=== PATIENT | female | born 1960 | race Caucasian/White ===

== ENCOUNTER 2019-10-21 08:35 | Outpatient (CLI) | payer BC ==
--- NOTE | 2019-10-21 09:40 | MMO ---
Bilateral MAMMO Bilat Diag [facility]. CLINICAL HISTORY: Patient is 59 years old and is seen for diagnostic exam and lump or thickening in the left breast. The patient has no family history of breast cancer. The patient has no personal history of cancer. VIEWS: The views performed were: bilateral craniocaudal with tomosynthesis; bilateral mediolateral oblique with tomosynthesis; bilateral mediolateral with tomosynthesis; and left exaggerated craniocaudal with tomosynthesis. FILMS COMPARED: The present examination has been compared to prior imaging studies performed at [facility] on 10/11/1993, 12/26/2010, 09/15/2013 and 10/21/2019. This study has been interpreted with the assistance of computer-aided detection. MAMMOGRAM FINDINGS: The breasts are heterogeneously dense, which could obscure a lesion on mammography. There is a new spiculated mass with tiny calcs in the left upper outer breast with a small adjacent nodule. New prominent left axillary lymph nodes are noted. Please see US report. In the right breast, there are no suspicious masses, calcifications or areas of architectural distortion. IMPRESSION: FINDING IN THE LEFT BREAST IS HIGHLY SUGGESTIVE OF MALIGNANCY. AN ULTRASOUND-GUIDED BREAST BIOPSY IS RECOMMENDED. THE RESULTS OF THIS EXAM WERE SENT TO THE PATIENT. ACR BI-RADS Category 5 - Highly suggestive of malignancy - appropriate action should be taken D/w pt in person @ 9:[address] Concepcion over the phone @ 9:35 am MAMMOGRAPHY NOTE: 1. A negative mammogram report should not delay a biopsy if a dominant of clinically suspicious mass is present. 2. Approximately 10% to 15% of breast cancers are not detected by mammography. 3. Adenosis and dense breasts may obscure an underlying neoplasm. Reported by: ASIM MONTES MD Electonically Signed: [id number]
--- NOTE | 2019-10-21 10:44 | ULT ---
LIMITED LEFT BREAST ULTRASOUND: Date: 10/21/2019 HISTORY: Palpable mass left breast. FINDINGS: Correlation made with mammograms of same date. Sonographic evaluation of the region of palpable concern at the 2 o'clock position of the left breast , 8.0 cm from the nipple, demonstrates an irregular solid mass measuring 1.6 x 1.3 x 1.1 cm, correspo nding to the mammographic finding. Adjacent to this are three additional solid appearing nodules marisol uring 6.0 x 5.0 x 5.0 mm at 10.0 cm from the nipple, and 1.1cm, and 1.4 cm respectively at 11.0 cm fr om the nipple. Enlarged lymph nodes are seen in the left axilla measuring up to 1.5 x 0.8 x 0.9 cm. IMPRESSION: BI-RADS Category 5 - Highly suspicious for malignancy. Ultrasound-guided biopsy is recommended. Discussed in person with the patient at 0930 hours and over the telephone with Dr. Judy Concepcion at 0935 hours. POS: OFF
--- NOTE | 2019-10-21 13:59 | MMO ---
FILMS COMPARED: The present examination has been compared to prior imaging studies performed at [facility] on 12/26/2010, 09/15/2013 and 10/21/2019. MAMMOGRAM FINDINGS: There is a biopsy clip in the left upper outer breast mass and in the left axillary lymph node. IMPRESSION: FINDING IN THE LEFT BREAST IS CONFIRMED UTILIZING POST PROCEDURE MAMMOGRAM. Reported by: ASIM MONTES MD Electonically Signed: [id number]
--- NOTE | 2019-10-21 15:27 | ULT ---
EXAM: US Breast Bx US Guided, left breast mass Ultrasound-guided fine-needle aspiration left axillary lymph node Ultrasound-guided biopsy clip placement at sites of biopsy in the left breast PROVIDED CLINICAL HISTORY: Patient with a spiculated hypoechoic mass 2:00 position left breast with evidence of axillary lymphad enopathy. Biopsy was requested. COMPARISON: Left breast ultrasound and mammogram on 10/21/2019 TECHNIQUE: The procedure including the risks and complications were explained to the patient, and informed conse nt was obtained. Limited sonographic evaluation left breast was performed to localize the spiculated hypoechoic mass 2:00 position left breast as well as one of the enlarged lymph nodes axill louis tail region left breast each of which was marked. The areas were then meticulously prepped and draped in usual sterile fashion. Skin and subcutaneous tissues were infiltrated with buffered 1% lidocaine for local anesthesia at the level of the mass 2:00 position left breast. Small skin incision was made. A total of four 14-gauge core needle biopsy specimens were obtained utilizing concurrent real-time ultrasound guidanc e. A biopsy marker clip was then placed at site of biopsy within the left breast mass. Skin and subcutaneous tissues overlying an enlarged left axillary lymph node was performed. Small ski n incision was made. Utilizing concurrent real-time ultrasound guidance, a single 20-gauge fine-needle aspiration as well as 2 separate 20-gauge fine-needle aspirations were performed with Fra nseen needles. Biopsy marker clip was deployed adjacent to the lymph node post fine-needle aspiration. Hemostasis was achieved with direct pressure, and a dry sterile dressing was placed. Patient was cline sported to mammography for additional imaging. IMPRESSION: 1. Technically successful ultrasound-guided biopsy left breast mass. 2. Technically successful fine-needle aspiration of left axillary lymph node. 3. Technically successful biopsy marker clip placement at sites of biopsy.
== END 2019-10-21 08:36 | disposition home or self-care (01) ==
LOC: BICMAMMO 08:35
PROVIDERS: ATTEND Physician Assistant
DX: C50.412 Malignant neoplasm of upper-outer quadrant of left female breast (principal); C79.9 Secondary malignant neoplasm of unspecified site
CPT/HCPCS: 19083; 19084; 77066; 88305; G0279

== ENCOUNTER 2019-11-03 16:00 | Outpatient (CLI) | payer BC ==
--- NOTE | 2019-11-04 08:16 | MRI ---
EXAM: MRI of the breasts without and with contrast HISTORY: Left breast cancer in the upper outer left breast COMPARISON: Mammogram and ultrasound 10/21/2019 TECHNIQUE: Multiplanar multisequence MR images were obtained of the breasts without and with IV contr ast. 3-D MIP reformats and contrast enhancement curves were generated on a [employer] workstation. FINDINGS: Scattered fibroglandular breast parenchyma is seen. Minimal background parenchymal enhancement is seen in the outer aspect of the right breast. There is a focal asymmetry in the central aspect of the posterior left breast that does not demonstrate significant enhancement and likely represents focally asymmetric breast tissue. There is a 1.5 cm spiculated mass in the upper outer left breast. A biopsy clip is seen adjacent to t his mass. This represents the patient's known malignancy. There is an abnormal area of enhancement immediately beneath the skin in the region of the mass measuring 7 mm in size. This abnormal enhancem ent touches the undersurface of the dermis. There is enhancement in a linear fashion along the medial aspect of the mass which does not extend completely back to the pectoralis major muscle. There are 2 abnormal areas of enhancement 3.6 cm anterior to the mass. The largest measures 6 mm in size. These are in the outer aspect of the left breast. No suspicious abnormal enhancement is seen in the right breast. There are enlarged left axillary lymph nodes measuring up to 1.3 cm in size which are suspicious for spread of malignancy to the left axilla. No internal mammary lymph nodes are identified. No enlarged right axillary lymph nodes. The visualized liver is unremarkable. The visualized bones are unremarkable. IMPRESSION: BI-RADS Category 6-known malignancy. Appropriate action should be taken. The patient appears to have multifocal disease in the outer aspect of the left breast as described above. 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
== END 2019-11-03 16:01 | disposition home or self-care (01) ==
LOC: BICMRI 16:00
PROVIDERS: ATTEND Internal Medicine Hematology & Oncology
DX: C50.411 Malignant neoplasm of upper-outer quadrant of right female breast (principal)
CPT/HCPCS: 82565; A9577; C8908